=== PATIENT | male | born 1985 | race African-American/Black ===

== ENCOUNTER 2019-04-13 06:45 | Emergency (ER) | payer BC ==
[~2019-04-13] VITALS: Ht 175.3 cm; Wt 77.6 kg
== END 2019-04-13 09:10 | disposition home or self-care (01) ==
LOC: ED 06:45
DX: R10.9 Unspecified abdominal pain (principal)
CPT/HCPCS: 74018; 80053; 81001; 83690; 85025; 99284-25

== ENCOUNTER 2019-04-14 07:02 | Emergency (ER) | payer BC ==
[~2019-04-14] VITALS: Ht 175.3 cm; Wt 77.6 kg
--- OUTSIDE RECORDS SUMMARY | 2019-04-14 07:04 | XMS ---
PreManage Notification: JUVENCIO MILLER Security Horse [employer] Events No recent Security Events currently on file CRITERIA MET - [facility] - 2 Visits in 30 Days CARE PROVIDERS TALIA MORRISON [facility] 10/15/2018-Current PHONE: [phone] TALIA MORRISON Primary [facility] 10/15/2018-Current PHONE: Unknown [facility] PRIMARY [facility] PHONE: Unknown Jennifer has no Care Guidelines for this patient. E.D. VISIT COUNT (12 MO.) 2 ANGELA Negrete TOTAL 2 NOTE: Visits indicate total known visits. ED/UCC VISIT TRACKING (12 MO.) 04/14/2019 07:02 ANGELA Cespedes OR TYPE: Emergency COMPLAINT: - ABD PAIN 04/13/2019 06:46 ANGELA Cespedes OR TYPE: Emergency COMPLAINT: - RIGHT SIDE ABDOMINAL AND BACK PAIN INPATIENT VISIT TRACKING (12 MO.) No inpatient visits to display in this time frame [email or web address]
== END 2019-04-14 12:20 | disposition home or self-care (01) ==
LOC: ED 07:02
DX: R10.9 Unspecified abdominal pain (principal)
CPT/HCPCS: 80053; 81001; 85025; 96360; 96361; 99284-25; J7030

== ENCOUNTER 2019-04-17 11:22 | Emergency (ER) | payer BC ==
[~2019-04-17] VITALS: Ht 175.3 cm; Wt 77.6 kg
--- OUTSIDE RECORDS SUMMARY | 2019-04-17 11:26 | XMS ---
PreManage Notification: JUVENCIO MILLER Security Care Assistant Events No recent Security Events currently on file CRITERIA MET - [facility] - 2 Visits in 30 Days CARE PROVIDERS TALIA MORRISON [facility] 10/15/2018-Current PHONE: [phone] PRINCE VERDUGOUAB [facility] Care 10/15/2018-Current PHONE: Unknown [facility] PRIMARY [facility] PHONE: Unknown Jennifer has no Care Guidelines for this patient. E.D. VISIT COUNT (12 MO.) 3 ANGELA Negrete TOTAL 3 NOTE: Visits indicate total known visits. ED/UCC VISIT TRACKING (12 MO.) 04/17/2019 11:23 ANGELA Cespedes OR TYPE: Emergency COMPLAINT: - ABD PAIN 04/14/2019 07:02 ANGELA Cespedes OR TYPE: Emergency COMPLAINT: - ABD PAIN 04/13/2019 06:46 ANGELA Cespedes OR TYPE: Emergency COMPLAINT: - RIGHT SIDE ABDOMINAL AND BACK PAIN INPATIENT VISIT TRACKING (12 MO.) No inpatient visits to display in this time frame [email or web address]
== END 2019-04-17 14:10 | disposition home or self-care (01) ==
LOC: ED 11:22
DX: R10.31 Right lower quadrant pain (principal)
CPT/HCPCS: 74177; 80053; 83690; 85025; 99284-25; J7040; Q9967

== ENCOUNTER 2020-09-23 10:45 | Emergency (ER) | payer BC ==
[~2020-09-23] VITALS: Ht 175.3 cm; Wt 77.1 kg
--- NOTE | 2020-09-24 12:00 | EKG ---
[facility] [address] [place] [address] Signed Normal sinus rhythm with sinus arrhythmia Normal ECG No previous ECGs available Confirmed by BRUCE PETERSON DO ([id number]) on 09/24/2020 12:00:37 PM Electronically Signed By: BRUCE PETERSON DO 09/24/20 1200 PATIENT NAME: JUVENCIO MILLER Electrocardiogram DATE OF : 83 PHYSICIAN: BRUCE PETERSON DO REPORT #: [id number] REPORT IS CONFIDENTIAL AND NOT TO BE RELEASED WITHOUT AUTHORIZATION
== END 2020-09-23 13:21 | disposition home or self-care (01) ==
LOC: ED 10:45
DX: R07.89 Other chest pain (principal)
CPT/HCPCS: 71045; 80053; 83735; 84484; 85025; 93005; 93010; 99285-25